=== PATIENT | female | born 1975 | race Caucasian/White ===

== ENCOUNTER 2017-01-26 07:02 | Emergency (ER) | payer OTHER ==
[~2017-01-26] VITALS: Ht 160 cm; Wt 61.0 kg
[~2017-01-26 07:02] MED LIST: VENTAER INH
[2017-01-26 07:05] VITALS: BP 114/75; PULSE 112; RESP 24; TEMP 98.8; O2SAT 97
[2017-01-26 07:21] VITALS: BP 105/60; PULSE 106; RESP 20; TEMP 98.8; O2SAT 96
[2017-01-26 07:23] VITALS: O2SAT 96
[2017-01-26] MEDS: RESP: ALBUTEROL 2.5 MG/IPRATROPIUM 0.5 MG NEB (SCH) INH (07:30)
[2017-01-26] MEDS ORDERED: predniSONE 50 MG TAB PO ONE (07:30)
--- NOTE | 2017-01-26 07:46 | RADHPO ---
EXAM DATE/TIME: 01/26/2017 07:25 [facility] COMPARISON: No previous studies available for comparison. INDICATIONS : Ashtma attack. Short of breath. wheezing. MEDICAL HISTORY : Deep venous thrombosis. Gastroesophageal reflux disease. Renal calculi. PE. Ashtma. Ovarian cysts . Herniated disk. Cervical cancer. SURGICAL HISTORY : Appendectomy. Cholecystectomy. Hysterectomy. ENCOUNTER: Initial ACUITY: 1 day PAIN SCORE: 0/10 LOCATION: chest FINDINGS: PA and lateral views of the chest demonstrate the lungs to be symmetrically aerated without evidence of mass, infiltrate or effusion. The cardiomediastinal contours are unremarkable. Osseous structure s are intact. CONCLUSION: No acute disease. Ray Schilling MD FACR on January 26, 2017 at 7:44 Board Certified Radiologist. This report was verified electronically.
--- NOTE | 2017-01-26 08:05 | PD ---
HPI Chief Complaint: Respiratory Symptoms Time Seen by Provider: 07:17 Travel History International Travel<30 days: No Contact w/Intl Traveler<30days: No Traveled to known affect area: No History of Present Illness HPI 41-year-old female presents with wheezing and shortness of breath over the past couple of days. She states this morning it felt worse. She states that she is out of her nebulizer and inhaler. She states that she's only had to be hospitalized once or twice for her asthma and it is usually under good control. She states she's not having any fever or other concurrent complaints. Quality is wheezing. Severity is worsening. PFSH Past Medical History Arthritis: No Asthma: Yes Blood Disorders: Yes () Anxiety: Yes Depression: Yes Heart Rhythm Problems: No Cancer: Yes (CERVICAL) Cardiovascular Problems: No High Cholesterol: No Chemotherapy: No Chest Pain: No Congestive Heart Failure: No COPD: No Cerebrovascular Accident: No Diabetes: No Diminished Hearing: No Deep Vein Thrombosis: Yes (2008) Endocrine: Yes (GREGORY'S PANCREATITIS) Gastrointestinal Disorders: Yes GERD: Yes Glaucoma: No Genitourinary: No Headaches: No Hepatitis: No Hiatal Hernia: No Herniated Disk: Yes Hypertension: No Immune Disorder: No Implanted Vascular Access Dvce: No Kidney Stones: Yes Musculoskeletal: No Neurologic: No Psychiatric: No Reproductive: Yes (ENDOMETRIOSIS) Respiratory: Yes (asthma) Immunizations Current: Yes Migraines: No Myocardial Infarction: No Pancreatitis: Yes Radiation Therapy: No Renal Failure: No Shingles: Yes Sickle Cell Disease: No Sleep Apnea: No Thyroid Disease: No Ulcer: No PNEUMOCCOCAL Vaccine (Year): 3 ?: Not Menopausal: No : 4 Para: 2 Miscarriage: 1 : 0 Ectopic : Yes Ovarian Cysts: Yes Dilation and Curettage (D&C): Yes Tubal Ligation: No Past Surgical History Abdominal Surgery: Yes (C SECTON, ETOPIC PREGO, APPY, CHOLEY, MUTIPLE AB SX FOR ENDOMITRIOSIS, ACDF) AICD: No Appendectomy: Yes Arteriovenous Shunt: No Cardiac Surgery: No Section: No Cholecystectomy: Yes Ear Surgery: No Endocrine Surgery: No Eye Surgery: No Genitourinary Surgery: No Gynecologic Surgery: Yes Hysterectomy: Yes Insulin Pump: No Joint Replacement: No Neurologic Surgery: Yes Oral Surgery: No Pacemaker: No Thoracic Surgery: No Other Surgery: Yes ([id number]--"LAPAROSCOPY'S X8") Family History Family Hypercholesterolemia: Yes Social History Alcohol Use: No Tobacco Use: No Substance Use: No Allergies-Medications (Allergen,Severity, Reaction): Coded Allergies: Nonsteroidal Anti-Inflammatory Agts (Verified Allergy, Severe, Shortness of Breath, 01/26/17) Ultram (Verified Adverse Reaction, Severe, "convulsions", 01/26/17) Ceclor (Verified Adverse Reaction, Intermediate, Nausea/Vomiting, 01/26/17) Penicillin (Verified Adverse Reaction, Intermediate, Nausea/Vomiting, ) Reglan (Verified Adverse Reaction, Intermediate, NERVOUS, JITTERY, 01/26/17) Toradol (Verified Adverse Reaction, Intermediate, WHEEZING, SOB, 01/26/17) Vancomycin (Verified Adverse Reaction, Intermediate, Hives, 01/26/17) Zofran (Verified Adverse Reaction, Intermediate, NERVOUS, JITTERY., 01/26/17 ) Reported Meds & Prescriptions Reported Meds & Active Scripts Active Albuterol Neb (Albuterol Sulfate) 2.5 Mg/3 Ml Neb 2.5 Mg NEB Q4-6H PRN Prednisone 50 Mg Tab 50 Mg PO DAILY first dose tommorrow 01/27 Ventolin Hfa 18 GM Inh (Albuterol Sulfate) 90 Mcg/Act Aer 2 Puff INH Q4-6H PRN Review of Systems Except as stated in HPI: all other systems reviewed are Neg Physical Exam Narrative General: No apparent distress, well appearing ENT: Posterior oropharyngx clear without exudate or erythema Neck: Neck is supple, no meningeal signs, trachea is midline Cardiovascular: Regular rate and rhythm Lungs: No increased respiratory effort noted, expiratory wheezing bilaterally with good aeration Abdomen: Soft, NT Extremities: No edema Neuro: Awake, motor and sensation grossly intact, normal speech Data Data Last Documented VS Vital Signs Date Time Temp Pulse Resp B/P Pulse Ox O2 Delivery O2 Flow Rate FiO2 01/26/17 09:04 100 18 98 01/26/17 07:23 Room Air 01/26/17 07:21 98.8 105/60 Orders Ecg Monitoring (01/26/17 07:20) Oximetry (01/26/17 07:20) Chest, Pa & Lat (01/26/17 07:20) Albuterol-Ipratropium Neb (Duoneb Neb) (01/26/17 07:30) Prednisone (Deltasone) (01/26/17 07:30) MDM Medical Decision Making Medical Screen Exam Complete: Yes Emergency Medical Condition: Yes Medical Record Reviewed: Yes (past history confirmed) Interpretation(s) Last 24 hours Impressions Chest X-Ray 01/26/17 0720 Signed Impressions: Service Date/Time: Thursday, January 26, 2017 07:25 - CONCLUSION: No acute disease. Ray Schilling MD FACR Differential Diagnosis Pneumonia, pneumothorax, asthma exacerbation Narrative Course Will check chest x-ray and dose with DuoNeb's and prednisone and reevaluate on recheck ctab, Patient denies any new complaints and states that they are feeling better. Patient happy with care, all questions answered. Patient knows that follow up is incumbent on them and to return to the emergency room immediately if new or worsening symptoms develop. Patient given strict return precautions, vitals reviewed and are normal, agrees to further workup as an outpatient. Diagnosis Primary Impression: Asthma exacerbation Patient Instructions: General Instructions Additional Instructions: return as needed, albuterol as needed, follow with primary this week for recheck Med/Other Pt SpecificInfo: Prescription(s) given Scripts Albuterol Neb 2.5 Mg/3 Ml Neb2.5 Mg NEB Q4-6H PRN (SHORTNESS OF BREATH) #1 NEBULE Ref 0 Prov:Celina East MD 01/26/17 Prednisone 50 Mg Tab50 Mg PO DAILY #5 TAB first dose tommorrow 01/27 Prov:Celina East MD 01/26/17 Albuterol 18 GM Inh (Ventolin Hfa 18 GM Inh)90 Mcg/Act Aer2 Puff INH Q4-6H PRN ( SHORTNESS OF BREATH) #1 INHALER Prov:Celina East MD 01/26/17 Disposition: 01 DISCHARGE HOME Condition: Stable Celina East MD Jan 26, 2017 08:05
[2017-01-26] MEDS ORDERED: PRED50 PO (09:01)
[2017-01-26] MEDS ORDERED: ALBU0.08 NEB (09:01)
[2017-01-26] MEDS ORDERED: VENTAER INH (09:01)
== END 2017-01-26 09:10 | disposition home or self-care (01) ==
LOC: PHED 07:02
DX: J45.901 Unspecified asthma with (acute) exacerbation (principal); R06.02 Shortness of breath
CPT/HCPCS: 71020; 94640; 94664; 99284; J7512

== ENCOUNTER 2017-02-23 10:14 | Emergency (ER) | payer SELFPAY ==
[~2017-02-23] VITALS: Ht 160 cm; Wt 63.0 kg
[~2017-02-23 10:14] MED LIST changes: +ALBU0.08 NEB; +PRED50 PO
[2017-02-23 10:20] VITALS: BP 122/85; PULSE 105; RESP 16; TEMP 98.5; O2SAT 98
--- NOTE | 2017-02-23 10:43 | PD ---
HPI Chief Complaint: Musculoskeletal Complaint Time Seen by Provider: 10:44 Travel History International Travel<30 days: No Contact w/Intl Traveler<30days: No Traveled to known affect area: No History of Present Illness HPI This is a 41-year-old female who presents to the emergency department having had a ACDF surgery in July of last year presenting to the emergency department today with 2 days of increasing pain in her neck and bilateral arms, constant and associated with numbness and tingling in both arms, severe. She says the Lortab usually helps but she hasn't had to take Lortab and several months because she had been doing well. She's been taking Tylenol but that has not been helping and she tried Biofreeze. She denies any weakness. She says she has an appointment with a neurosurgeon in early March. PFSH Past Medical History Arthritis: No Asthma: Yes Blood Disorders: Yes (PE-2008) Anxiety: Yes Depression: Yes Heart Rhythm Problems: No Cancer: Yes (CERVICAL) Cardiovascular Problems: No High Cholesterol: No Chemotherapy: No Chest Pain: No Congestive Heart Failure: No COPD: No Cerebrovascular Accident: No Diabetes: No Diminished Hearing: No Deep Vein Thrombosis: Yes (PE 2008) Endocrine: Yes (GREGORY'S PANCREATITIS) Gastrointestinal Disorders: Yes GERD: Yes Glaucoma: No Genitourinary: No Headaches: No Hepatitis: No Hiatal Hernia: No Herniated Disk: Yes Hypertension: No Immune Disorder: No Implanted Vascular Access Dvce: No Kidney Stones: Yes Musculoskeletal: No Neurologic: No Psychiatric: No Reproductive: Yes (ENDOMETRIOSIS) Respiratory: Yes (asthma) Immunizations Current: Yes Migraines: No Myocardial Infarction: No Pancreatitis: Yes Radiation Therapy: No Renal Failure: No Shingles: Yes Sickle Cell Disease: No Sleep Apnea: No Thyroid Disease: No Ulcer: No PNEUMOCCOCAL Vaccine (Year): 3 ?: Not Menopausal: No : 4 Para: 2 Miscarriage: 1 : 0 Ectopic : Yes Ovarian Cysts: Yes Dilation and Curettage (D&C): Yes Tubal Ligation: No Past Surgical History Abdominal Surgery: Yes (C SECTON, ETOPIC PREGO, APPY, CHOLEY, MUTIPLE AB SX FOR ENDOMITRIOSIS, ACDF) AICD: No Appendectomy: Yes Arteriovenous Shunt: No Cardiac Surgery: No Section: No Cholecystectomy: Yes Ear Surgery: No Endocrine Surgery: No Eye Surgery: No Genitourinary Surgery: No Gynecologic Surgery: Yes Hysterectomy: Yes Insulin Pump: No Joint Replacement: No Neurologic Surgery: Yes Oral Surgery: No Pacemaker: No Thoracic Surgery: No Other Surgery: Yes ([id number]--"LAPAROSCOPY'S X8") Family History Family Hypercholesterolemia: Yes Social History Alcohol Use: No Tobacco Use: No Substance Use: No Allergies-Medications (Allergen,Severity, Reaction): Coded Allergies: Nonsteroidal Anti-Inflammatory Agts (Verified Allergy, Severe, Shortness of Breath, 02/23/17) Ultram (Verified Adverse Reaction, Severe, "convulsions", 02/23/17) Ceclor (Verified Adverse Reaction, Intermediate, Nausea/Vomiting, 02/23/17) Penicillin (Verified Adverse Reaction, Intermediate, Nausea/Vomiting, ) Reglan (Verified Adverse Reaction, Intermediate, NERVOUS, JITTERY, 02/23/17) Toradol (Verified Adverse Reaction, Intermediate, WHEEZING, SOB, 02/23/17) Vancomycin (Verified Adverse Reaction, Intermediate, Hives, 02/23/17) Zofran (Verified Adverse Reaction, Intermediate, NERVOUS, JITTERY., 02/23/17 ) Reported Meds & Prescriptions Reported Meds & Active Scripts Active Albuterol Neb (Albuterol Sulfate) 2.5 Mg/3 Ml Neb 2.5 Mg NEB Q4-6H PRN Prednisone 50 Mg Tab 50 Mg PO DAILY first dose tommorrow 4/6 Ventolin Hfa 18 GM Inh (Albuterol Sulfate) 90 Mcg/Act Aer 2 Puff INH Q4-6H PRN Review of Systems General / Constitutional: No: Fever, Chills Neurologic: No: Weakness, Dizziness Physical Exam Narrative GENERAL:Well appearing, no acute distress HEAD: Atraumatic. Normocephalic. EYES: Pupils equal and round. No injection or drainage. ENT: Moist mucous membranes NECK: Trachea midline. Tender to palpation along the midline cervical spine with some bilateral paracervical muscle tenderness CARDIOVASCULAR: Regular rate and rhythm. No murmur appreciated. RESPIRATORY: Clear to auscultation. Breath sounds equal bilaterally. GASTROINTESTINAL: Abdomen soft, non-tender, nondistended. MUSCULOSKELETAL: No obvious deformities. NEUROLOGICAL: Awake and alert. No obvious cranial nerve deficits. 5 out of 5 strength in the bilateral upper extremities with sensation intact to light touch on the volar and dorsal aspects of the arms bilaterally. PSYCHIATRIC: Appropriate mood and affect; insight and judgment normal. Data Data Last Documented VS Vital Signs Date Time Temp Pulse Resp B/P Pulse Ox O2 Delivery O2 Flow Rate FiO2 02/23/17 10:20 98.5 105 16 122/85 98 [facility] Medical Decision Making Medical Screen Exam Complete: Yes Emergency Medical Condition: Yes Differential Diagnosis Cervical radiculopathy, cord compression, drug-seeking behavior Narrative Course This is a 41-year-old female who presents to the emergency department having had an ACDF performed in July with increasing neck pain and some tingling in both arms. She has an objectively normal neurologic exam so I doubt cord compression. Patient is requesting Lortab by name. She has stated allergies to all NSAIDs, Toradol and Ultram. She is received 18 controlled substance prescriptions from 11 different providers in the past year. I suspect the patient is displaying drug-seeking behavior. I offered her a trial of meloxicam or not opiates, but informed her I was unable to provide her with any controlled substances at which time she left the emergency department without discharge paperwork. Diagnosis Primary Impression: Drug-seeking behavior Patient Instructions: General Instructions Additional Instructions: If you develop weakness of your legs, difficulty walking, numbness of your legs or your genital or rectal area, loss of your bowel or bladder, or difficulty urinating return to the emergency department immediately. Followup with your primary care physician in one week if your symptoms have not improved. Med/Other Pt SpecificInfo: No Change to Meds Disposition: 01 DISCHARGE HOME Condition: Stable Petra Quigley MD February 23, 2017 10:43
== END 2017-02-23 10:51 | disposition home or self-care (01) ==
LOC: PHEFT 10:14
DX: Z76.5 Malingerer [conscious simulation] (principal); R20.0 Anesthesia of skin; M54.2 Cervicalgia; J45.909 Unspecified asthma, uncomplicated; Z86.718 Personal history of other venous thrombosis and embolism; Z86.711 Personal history of pulmonary embolism; Z98.1 Arthrodesis status
CPT/HCPCS: 99283

== ENCOUNTER 2017-03-31 15:18 | Emergency (ER) | payer BC ==
[~2017-03-31] VITALS: Ht 160 cm; Wt 62.0 kg
[2017-03-31 15:27] VITALS: BP 117/70; PULSE 124; RESP 24; O2SAT 94
--- NOTE | 2017-03-31 15:29 | PD ---
HPI Chief Complaint: Respiratory Symptoms Time Seen by Provider: 15:25 Travel History International Travel<30 days: No Contact w/Intl Traveler<30days: No Traveled to known affect area: No History of Present Illness HPI This 41-year-old female is complaining of cough and shortness of breath. She has a history of asthma for many years. He is a nebulizer at home. She has been on steroids in the past but isn't on steroids now. Sick for several days with cough and congestion. She had a hysterectomy in 2001. He does not smoke but is around smokers [facility] Past Medical History Arthritis: No Asthma: Yes Blood Disorders: Yes (PE-2008) Anxiety: Yes Depression: Yes Heart Rhythm Problems: No Cancer: Yes (CERVICAL) Cardiovascular Problems: No High Cholesterol: No Chemotherapy: No Chest Pain: No Congestive Heart Failure: No COPD: Yes Cerebrovascular Accident: No Diabetes: No Diminished Hearing: No Deep Vein Thrombosis: Yes (PE 2008) Endocrine: Yes (GREGORY'S PANCREATITIS) Gastrointestinal Disorders: Yes GERD: Yes Glaucoma: No Genitourinary: No Headaches: No Hepatitis: No Hiatal Hernia: No Herniated Disk: Yes Hypertension: No Immune Disorder: No Implanted Vascular Access Dvce: No Kidney Stones: Yes Musculoskeletal: No Neurologic: No Psychiatric: No Reproductive: Yes (ENDOMETRIOSIS) Respiratory: Yes (asthma) Immunizations Current: Yes Migraines: No Myocardial Infarction: No Pancreatitis: Yes Radiation Therapy: No Renal Failure: No Shingles: Yes Sickle Cell Disease: No Sleep Apnea: No Thyroid Disease: No Ulcer: No Influenza Vaccination: No PNEUMOCCOCAL Vaccine (Year): 3 ?: Not Menopausal: No : 4 Para: 2 Miscarriage: 1 : 0 Ectopic : Yes Ovarian Cysts: Yes Dilation and Curettage (D&C): Yes Tubal Ligation: No Past Surgical History Abdominal Surgery: Yes (C SECTON, ETOPIC PREGO, APPY, CHOLEY, MUTIPLE AB SX FOR ENDOMITRIOSIS, ACDF) AICD: No Appendectomy: Yes Arteriovenous Shunt: No Cardiac Surgery: No Section: No Cholecystectomy: Yes Ear Surgery: No Endocrine Surgery: No Eye Surgery: No Genitourinary Surgery: No Gynecologic Surgery: Yes Hysterectomy: Yes Insulin Pump: No Joint Replacement: No Neurologic Surgery: Yes Oral Surgery: No Pacemaker: No Thoracic Surgery: No Other Surgery: Yes ([id number]--"LAPAROSCOPY'S X8") Family History Family Hypercholesterolemia: Yes Social History Alcohol Use: No Tobacco Use: No Substance Use: No Allergies-Medications (Allergen,Severity, Reaction): Coded Allergies: Nonsteroidal Anti-Inflammatory Agts (Verified Allergy, Severe, Shortness of Breath, 03/31/17) Ultram (Verified Adverse Reaction, Severe, "convulsions", 03/31/17) Ceclor (Verified Adverse Reaction, Intermediate, Nausea/Vomiting, 03/31/17) Penicillin (Verified Adverse Reaction, Intermediate, Nausea/Vomiting, ) Reglan (Verified Adverse Reaction, Intermediate, NERVOUS, JITTERY, 03/31/17) Toradol (Verified Adverse Reaction, Intermediate, WHEEZING, SOB, 03/31/17) Vancomycin (Verified Adverse Reaction, Intermediate, Hives, 03/31/17) Zofran (Verified Adverse Reaction, Intermediate, NERVOUS, JITTERY., 03/31/17 ) Reported Meds & Prescriptions Reported Meds & Active Scripts Active Albuterol Neb (Albuterol Sulfate) 2.5 Mg/3 Ml Neb 2.5 Mg NEB Q4-6H PRN Review of Systems General / Constitutional: No: Fever, Chills Eyes: No: Diploplia, Blurred Vision HENT: No: Headaches Cardiovascular: No: Chest Pain or Discomfort Respiratory: Positive: Cough, Shortness of Breath, Wheezing Gastrointestinal: No: Vomiting, Diarrhea Genitourinary: No: Urgency, Frequency Musculoskeletal: No: Myalgias, Arthralgias Neurologic: No: Weakness, Dizziness Hematologic/Lymphatic: No: Easy Bruising Physical Exam Narrative GENERAL: Well-developed female in mild respiratory distress SKIN: Focused skin assessment warm/dry. HEAD: Atraumatic. Normocephalic. EYES: Pupils equal and round. No scleral icterus. No injection or drainage. ENT: No nasal bleeding or discharge. Mucous membranes pink and moist. NECK: Trachea midline. No JVD. CARDIOVASCULAR: Regular rate and rhythm. No murmur appreciated. RESPIRATORY: There is some accessory muscle use. She has bilateral expiratory wheezes GASTROINTESTINAL: Abdomen soft, non-tender, nondistended. Hepatic and splenic margins not palpable. MUSCULOSKELETAL: No obvious deformities. No clubbing. No cyanosis. No edema. NEUROLOGICAL: Awake and alert. No obvious cranial nerve deficits. Motor grossly within normal limits. Normal speech. PSYCHIATRIC: Appropriate mood and affect; insight and judgment normal. Data Data Last Documented VS Vital Signs Date Time Temp Pulse Resp B/P Pulse Ox O2 Delivery O2 Flow Rate FiO2 03/31/17 16:18 99.1 124 20 119/63 95 03/31/17 15:42 21 Orders Electrocardiogram (03/31/17 15:26) Complete Blood Count With Diff (03/31/17 15:26) Comprehensive Metabolic Panel (03/31/17 15:26) Chest, Single Ap (03/31/17 15:26) Ecg Monitoring (03/31/17 15:26) Iv Access Insert/Monitor (03/31/17 15:26) Oximetry (03/31/17 15:26) Methylprednisolone So Succ Inj (Solumedr (03/31/17 15:30) Albuterol-Ipratropium Neb (Duoneb Neb) (03/31/17 15:30) Sodium Chloride 0.9% Flush (Ns Flush) (03/31/17 15:30) Labs Laboratory Tests Test 03/31/17 15:54 White Blood Count 15.7 TH/MM3 Red Blood Count 5.06 MIL/MM3 Hemoglobin 13.4 GM/DL Hematocrit 40.7 % Mean Corpuscular Volume 80.5 FL Mean Corpuscular Hemoglobin 26.5 PG Mean Corpuscular Hemoglobin 33.0 % Concent Red Cell Distribution Width 12.7 % Platelet Count 513 TH/MM3 Mean Platelet Volume 8.1 FL Neutrophils (%) (Auto) 75.1 % Lymphocytes (%) (Auto) 18.9 % Monocytes (%) (Auto) 2.9 % Eosinophils (%) (Auto) 2.1 % Basophils (%) (Auto) 1.0 % Neutrophils # (Auto) 11.7 TH/MM3 Lymphocytes # (Auto) 3.0 TH/MM3 Monocytes # (Auto) 0.5 TH/MM3 Eosinophils # (Auto) 0.3 TH/MM3 Basophils # (Auto) 0.2 TH/MM3 CBC Comment DIFF FINAL Differential Comment Sodium Level 141 MEQ/L Potassium Level 3.5 MEQ/L Chloride Level 106 MEQ/L Carbon Dioxide Level 24.3 MEQ/L Anion Gap 11 MEQ/L Blood Urea Nitrogen 6 MG/DL Creatinine 0.81 MG/DL Estimat Glomerular Filtration 78 ML/MIN Rate Random Glucose 94 MG/DL Calcium Level 8.6 MG/DL Total Bilirubin 0.5 MG/DL Aspartate Amino Transf 15 U/L (AST/SGOT) Alanine Aminotransferase 23 U/L (ALT/SGPT) Alkaline Phosphatase 78 U/L Total Protein 8.3 GM/DL Albumin 3.9 GM/DL [facility] Medical Decision Making Medical Screen Exam Complete: Yes Emergency Medical Condition: Yes Medical Record Reviewed: Yes Differential Diagnosis Differential includes asthma exacerbation, pneumonia, COPD Narrative Course Patient has been given repeated nebulizer treatments with improvement. Repeat examination shows the lungs to be clear. She is feeling much better. Chest x- ray shows normal-sized heart. There is some increased density at the right base adjacent to the heart which may represent an early infiltrate. White count is 15,000. Patient will be released with prescriptions for Zithromax and prednisone Diagnosis Primary Impression: Asthma exacerbation Scripts Prednisone (48) 10 mg tab Dose Pack 10 Mg [id number] Mg PO DIRECTED #1 DSPK Ref 0 Prov:Blas Chatman MD 03/31/17 Azithromycin (Zithromax Z-Arnulfo)250 Mg [id number] Mg PO DIRECTED #1 DSPK Ref 0 500 MG (2 tabs) day 1, then 1 tab days 2-5. Prov:Blas Chatman MD 03/31/17 Disposition: 01 DISCHARGE HOME Condition: Stable Blas Chatman MD Mar 31, 2017 15:29
[2017-03-31] MEDS ORDERED: SODIUM CHLORIDE 0.9% FLUSH 10 ML FLUSH IVF PRN (15:30)
[2017-03-31] MEDS ORDERED: methylPREDNISolone SOD SUCC 125 MG/2 ML VIAL IVP ONE (15:30)
[2017-03-31 15:31] VITALS: O2SAT 94
[2017-03-31] MEDS: RESP: ALBUTEROL 2.5 MG/IPRATROPIUM 0.5 MG NEB (SCH) INH (15:40)
[2017-03-31 15:42] VITALS: O2SAT 95
[2017-03-31 16:02] LABS: AUTOMATED NEUTROPHIL # 11.7 TH/MM3 (1.8-7.7); BASOPHIL # 0.2 TH/MM3 (0-0.2); EOSINOPHIL # 0.3 TH/MM3 (0-0.4); EOSINOPHIL % 2.1 % (0.0-4.0); HEMATOCRIT 40.7 % (35.0-46.0); LYMPH % 18.9 % (9.0-44.0); MEAN CELL VOLUME 80.5 FL (80.0-100.0); MEAN CORPUSCULAR HEMOGLOBIN 26.5 PG (27.0-34.0); MONO % 2.9 % (0.0-8.0); NEUT % 75.1 % (16.0-70.0); PLATELET COUNT 513 TH/MM3 (150-450); RED BLOOD COUNT 5.06 MIL/MM3 (4.00-5.30); RED CELL DISTRIBUTION WIDTH 12.7 % (11.6-17.2); WHITE BLOOD COUNT 15.7 TH/MM3 (4.0-11.0)
[2017-03-31 16:13] LABS: CHLORIDE 106 MEQ/L (98-107); POTASSIUM 3.5 MEQ/L (3.5-5.1); SODIUM (NA) 141 MEQ/L (136-145)
[2017-03-31 16:17] LABS: ANION GAP 11 MEQ/L (5-15); BICARBONATE 24.3 MEQ/L (21.0-32.0); BLOOD UREA NITROGEN 6 MG/DL (7-18); HEMO FLAGS DIFF FINAL
[2017-03-31 16:18] VITALS: BP 119/63; PULSE 124; RESP 20; TEMP 99.1; O2SAT 95
[2017-03-31 16:20] LABS: ALT (GPT) 23 U/L (10-53); AST (GOT) 15 U/L (15-37); GLOMERULAR FILTRATION RATE 78 ML/MIN (>89)
[2017-03-31 16:21] LABS: TOTAL BILIRUBIN ADULT 0.5 MG/DL (0.2-1.0)
[2017-03-31 16:23] LABS: ALKALINE PHOSPHATASE 78 U/L (45-117)
[2017-03-31] MEDS ORDERED: PRED10PA2 PO (16:38)
[2017-03-31] MEDS ORDERED: ZITHTAB PO (16:38)
--- NOTE | 2017-03-31 16:55 | RADHPO ---
EXAM DATE/TIME: 03/31/2017 16:04 [facility] COMPARISON: CHEST SINGLE AP, November 07, 2015, 10:57. INDICATIONS : Patient is short of breath. Diagnosed with asthma when she was [age] years old and feels like she was h aving an asthma attack today. MEDICAL HISTORY : Deep venous thrombosis. Gastroesophageal reflux disease. Renal calculi. SURGICAL HISTORY : Appendectomy. Cholecystectomy. Hysterectomy. ENCOUNTER: Initial ACUITY: 1 day PAIN SCORE: 0/10 LOCATION: Bilateral chest FINDINGS: A single view of the chest demonstrates the lungs to be symmetrically aerated without evidence of mas s, infiltrate or effusion. The cardiomediastinal contours are unremarkable. Osseous structures are intact. CONCLUSION: The lungs are clear. Jah Holbrook MD on March 31, 2017 at 16:34 Board Certified Radiologist. This report was verified electronically.
[2017-03-31 17:05] VITALS: BP 122/66
--- NOTE | 2017-04-01 17:52 | EKG ---
Date Performed: 03/31/2017 Time Performed: 15:24:20 PTAGE: 41 years EKG: Sinus tachycardia Consider left atrial abnormality Left bundle branch block Abnormal ECG PREVIOUS TRACING : 11/07/2015 09.07 Compared to the previous tracing rate faster DOCTOR: Lam Jernigan Interpretating Date/Time 04/01/2017 17:50:54
== END 2017-03-31 17:13 | disposition home or self-care (01) ==
LOC: PHED 15:18
DX: J45.901 Unspecified asthma with (acute) exacerbation (principal); R94.31 Abnormal electrocardiogram [ECG] [EKG]
CPT/HCPCS: 71010; 80053; 85025; 93005; 94640; 94664; 96374; 99285; J2930

== ENCOUNTER 2017-07-05 01:41 | Emergency (ER) | payer SELFPAY ==
[~2017-07-05] VITALS: Ht 162.6 cm; Wt 64.0 kg
[~2017-07-05 01:41] MED LIST changes: +PRED10PA2 PO; -PRED50 PO; -VENTAER INH; +ZITHTAB PO
[2017-07-05] MEDS ORDERED: SUBO2MIS SL (02:58)
[2017-07-05 02:59] VITALS: BP 115/77; PULSE 94; RESP 18; TEMP 98; O2SAT 94
--- NOTE | 2017-07-05 03:38 | PD ---
HPI Chief Complaint: Respiratory Distress Time Seen by Provider: 03:33 Travel History International Travel<30 days: No Contact w/Intl Traveler<30days: No Traveled to known affect area: No History of Present Illness HPI 41-year-old female presents to the emergency department by EMS transport for evaluation of exacerbation of asthma. According the patient she has a history of asthma, patient typically uses albuterol nebulized treatments to control her symptoms. Patient stopped smoking cigarettes 2 weeks ago. Patient has not recently been on steroid therapy. Patient reports that she ran out of her albuterol and became symptomatic and so decided to walk to the hospital. While the patient was walking to the hospital she started becoming very symptomatic she was fortunately seen by a [place] [employer] police officer who notified EMS and the patient was assessed to be an respiratory distress was administered IM Solu-Medrol and albuterol nebulized treatments 3. Upon their arrival to the emergency department reportedly patient was clinically improved with ability to auscultate bilateral breath sounds with wheezing throughout and patient is able to speak in short sentences which previously she had been unable to 2 and initially breath sounds were not able to be auscultated due to marked diminishment of breath sounds. Patient here denies any fever chills productive cough chest pain nausea vomiting abdominal pain flank pain joint pain or rash. Patient states she just ran out of her medication and did not have the resources to keep here other than by walking and did not have access to a refill or to the pharmacy as the pharmacies have enclosed. Patient denies other concerns or complaints. PFSH Past Medical History Narrative Medical Asthma anxiety depression PE endometriosis back pain shingles ovarian cyst D&C; appendectomy cholecystectomy D&C ectopic ; tobacco use; nursing notes reviewed Arthritis: No Asthma: Yes Blood Disorders: Yes (PE-2008) Anxiety: Yes Depression: Yes Heart Rhythm Problems: No Cancer: Yes (CERVICAL) Cardiovascular Problems: No High Cholesterol: No Chemotherapy: No Chest Pain: No Congestive Heart Failure: No COPD: Yes Cerebrovascular Accident: No Diabetes: No Diminished Hearing: No Deep Vein Thrombosis: Yes (PE 2008) Endocrine: Yes (GREGORY'S PANCREATITIS) Gastrointestinal Disorders: Yes GERD: Yes Glaucoma: No Genitourinary: No Headaches: No Hepatitis: No Hiatal Hernia: No Herniated Disk: Yes Hypertension: No Immune Disorder: No Implanted Vascular Access Dvce: No Kidney Stones: Yes Musculoskeletal: No Neurologic: No Psychiatric: No Reproductive: Yes (ENDOMETRIOSIS) Respiratory: Yes Immunizations Current: Yes Migraines: No Myocardial Infarction: No Pancreatitis: Yes Radiation Therapy: No Renal Failure: No Shingles: Yes Sickle Cell Disease: No Sleep Apnea: No Thyroid Disease: No Ulcer: No Tetanus Vaccination: < 5 Years Influenza Vaccination: No PNEUMOCCOCAL Vaccine (Year): 3 ?: Not Menopausal: No : 4 Para: 2 Miscarriage: 1 : 0 Ectopic : Yes Ovarian Cysts: Yes Dilation and Curettage (D&C): Yes Tubal Ligation: No Past Surgical History Abdominal Surgery: Yes (C SECTON, ETOPIC PREGO, APPY, CHOLEY, MUTIPLE AB SX FOR ENDOMITRIOSIS, ACDF) AICD: No Appendectomy: Yes Arteriovenous Shunt: No Cardiac Surgery: No Section: No Cholecystectomy: Yes Ear Surgery: No Endocrine Surgery: No Eye Surgery: No Genitourinary Surgery: No Gynecologic Surgery: Yes Hysterectomy: Yes Insulin Pump: No Joint Replacement: No Neurologic Surgery: Yes Oral Surgery: No Pacemaker: No Thoracic Surgery: No Other Surgery: Yes ([id number]--"LAPAROSCOPY'S X9") Family History Family Hypercholesterolemia: Yes Social History Alcohol Use: No Tobacco Use: No (PT STATES QUIT YESTERDAY, SMOKED 3/4 PPD) Substance Use: No Allergies-Medications (Allergen,Severity, Reaction): Coded Allergies: diclofenac (Unverified Allergy, Severe, Shortness of Breath, 07/05/17) etodolac (Unverified Allergy, Severe, Shortness of Breath, 07/05/17) flurbiprofen (Unverified Allergy, Severe, Shortness of Breath, 07/05/17) ibuprofen (Unverified Allergy, Severe, Shortness of Breath, 07/05/17) indomethacin (Unverified Allergy, Severe, Shortness of Breath, 07/05/17) ketoprofen (Unverified Allergy, Severe, Shortness of Breath, 07/05/17) naproxen (Unverified Allergy, Severe, Shortness of Breath, 07/05/17) oxaprozin (Unverified Allergy, Severe, Shortness of Breath, 07/05/17) tramadol (Unverified Adverse Reaction, Severe, "convulsions", 07/05/17) cefaclor (Unverified Adverse Reaction, Intermediate, Nausea/Vomiting, 07/05) ketorolac (Unverified Adverse Reaction, Intermediate, WHEEZING, SOB, ) metoclopramide (Unverified Adverse Reaction, Intermediate, NERVOUS, JITTERY, 07/05/17) ondansetron (Unverified Adverse Reaction, Intermediate, NERVOUS, JITTERY. , 07/05/17) penicillin G (Unverified Adverse Reaction, Intermediate, Nausea/Vomiting, 07/05/17) vancomycin (Unverified Adverse Reaction, Intermediate, Hives, 07/05/17) Reported Meds & Prescriptions Reported Meds & Active Scripts Active Medrol Dosepak (Methylprednisolone) 4 Mg Dspk 4 Mg PO DIRECTED Per Pharmacist direction Ventolin Hfa 18 GM Inh (Albuterol Sulfate) 90 Mcg/Act Aer 2 Puff INH Q4H PRN Albuterol Neb (Albuterol Sulfate) 2.5 Mg/3 Ml Neb 2.5 Mg NEB Q4HR NEB PRN Prednisone (48) 10 mg tab Dose Pack (Prednisone) 10 Mg Dspk 10 Mg PO DIRECTED Albuterol Neb (Albuterol Sulfate) 2.5 Mg/3 Ml Neb 2.5 Mg NEB Q4-6H PRN Reported Suboxone Sublingual Film (Buprenorphine-Naloxone Sublingual Film) 2-0.5 Mg Film 1 Film SL BID Unique ID number required: Review of Systems Except as stated in HPI: all other systems reviewed are Neg General / Constitutional: No: Fever, Chills HENT: No: Congestion Cardiovascular: No: Chest Pain or Discomfort Respiratory: Positive: Cough, Shortness of Breath, Wheezing Gastrointestinal: No: Nausea, Vomiting, Abdominal Pain Genitourinary: No: Flank Pain Musculoskeletal: No: Myalgias, Arthralgias Skin: No Rash Neurologic: No: Weakness Hematologic/Lymphatic: No: Lymph Node Enlargement Physical Exam Narrative GENERAL: Well-developed well-nourished female in no acute distress no respiratory distress SKIN: Warm and dry. HEAD: Normocephalic. EYES: No scleral icterus. No injection or drainage. NECK: Supple, trachea midline. No JVD or lymphadenopathy. CARDIOVASCULAR: Regular rate and rhythm without murmurs, gallops, or rubs. RESPIRATORY: Breath sounds equal bilaterally with wheezing bilaterally. No accessory muscle use. GASTROINTESTINAL: Abdomen soft, non-tender, nondistended. MUSCULOSKELETAL: No cyanosis, or edema. BACK: Nontender without obvious deformity. No CVA tenderness. Data Data Last Documented VS Vital Signs Date Time Temp Pulse Resp B/P (MAP) Pulse Ox O2 Delivery O2 Flow Rate FiO2 07/05/17 03:07 18 94 Room Air 07/05/17 02:59 98.0 94 115/77 (90) Orders Orders Albuterol-Ipratropium Neb (Duoneb Neb) (07/05/17 03:45) Chest, Single Ap (07/05/17 ) Sodium Chlor 0.9% 1000 Ml Inj (Ns 1000 M (07/05/17 03:45) MDM Medical Decision Making Medical Screen Exam Complete: Yes Emergency Medical Condition: Yes Medical Record Reviewed: Yes Interpretation(s) CXR: nad Differential Diagnosis Exacerbation asthma, bronchitis, pneumonia, CHF, ACS, PE Narrative Course Patient reports that she is clinically much improved after albuterol updrafts and only needs to have a medication refill does not want IV is on IV fluids as well as 1 to have additional DuoNeb updraft and chest x-ray but is ready to be discharged. Patient reports that she is very familiar with her asthma is aware that she needs a primary care provider is given the resources of [facility] and [facility] in order to help manage her asthma. Patient has stopped smoking cigarettes 2 weeks. Patient states that she is not having any chest pain or pleuritic chest pain no hemoptysis no productive cough no syncope. Patient is at her baseline she just unfortunately ran out of her medication with the storeroom and with the increase in allergens in the environment. Her symptoms such that she had to walk to the hospital to get assistance and became symptomatic therefore was brought in by EMS. Diagnosis Primary Impression: Asthma exacerbation Additional Impression: Medication refill Referrals: [facility] Patient Instructions: General Instructions Additional Instructions: Increase fluid hydration Follow-up with primary care provider Return to the emergency department for concerns or change in condition Med/Other Pt SpecificInfo: Prescription(s) given Scripts Methylprednisolone Dosepak (Medrol Dosepak) 4 Mg Dspk 4 MG PO DIRECTED, #1 DSPK 0 Refills Per Pharmacist direction Prov: Valorie Freeman MD 07/05/17 Albuterol 18 GM Inh (Ventolin Hfa 18 GM Inh) 90 Mcg/Act Aer 2 PUFF INH Q4H Y for SHORTNESS OF BREATH, #1 INHALER 0 Refills Prov: Valorie Freeman MD 07/05/17 Albuterol Neb (Albuterol Neb) 2.5 Mg/3 Ml Neb 2.5 MG NEB Q4HR NEB Y for SHORTNESS OF BREATH, #60 NEBULE 1 Refill Prov: Valorie Freeman MD 07/05/17 Disposition: 01 DISCHARGE HOME Condition: Stable Valorie Freeman MD Jul 05, 2017 03:37
[2017-07-05] MEDS ORDERED: SODIUM CHLOR 0.9% 1000 ML INJ 1,000 ML IV ONE (03:45)
[2017-07-05] MEDS ORDERED: RESP: ALBUTEROL 2.5 MG/IPRATROPIUM 0.5 MG NEB (SCH) NEB ONE (03:45)
[2017-07-05] MEDS ORDERED: MEDR4PAK PO (03:48)
[2017-07-05] MEDS ORDERED: VENTAER INH (03:48)
[2017-07-05] MEDS ORDERED: ALBU0.08 NEB (03:48)
--- NOTE | 2017-07-05 04:01 | RADRPT ---
EXAM DATE/TIME: 07/05/2017 03:45 [facility] COMPARISON: CHEST SINGLE AP, March 31, 2017, 16:04. INDICATIONS : Shortness of breath. MEDICAL HISTORY : Asthma. SURGICAL HISTORY : None. ENCOUNTER: Initial ACUITY: 1 day PAIN SCORE: 0/10 LOCATION: Bilateral chest FINDINGS: A single view of the chest demonstrates the lungs to be symmetrically aerated without evidence of mas s, infiltrate or effusion. The cardiomediastinal contours are unremarkable. Osseous structures are intact. CONCLUSION: No acute disease. Akash Us MD on July 05, 2017 at 3:58 Board Certified Radiologist. This report was verified electronically.
[2017-07-05 04:29] VITALS: BP 131/63
== END 2017-07-05 04:29 | disposition home or self-care (01) ==
LOC: PHED 01:41
DX: J45.901 Unspecified asthma with (acute) exacerbation (principal); Z87.891 Personal history of nicotine dependence
CPT/HCPCS: 71010; 94664; 99284